=== PATIENT | female | born 1995 | race Hispanic/Latino ===

== ENCOUNTER 2021-03-31 22:00 | Emergency (ER) | payer MEDICAID ==
[~2021-03-31 22:00] MED LIST: PREN-196 PO
[2021-03-31] MEDS ORDERED: CYCLOBENZAPRINE HCL 10 MG TABLET ONE (23:26)
[2021-03-31] MEDS ORDERED: ACETAMINOPHEN EXTRA STRENGTH 500 MG TABLET ONE (23:26)
== END 2021-03-31 23:55 | disposition home or self-care (01) ==
LOC: EDH 22:00
DX: M54.5 Low back pain (principal); M62.830 Muscle spasm of back

== ENCOUNTER 2021-09-01 18:13 | Observation (INO) | payer MEDICAID ==
[~2021-09-01] VITALS: Ht 157.5 cm; Wt 114.3 kg
[2021-09-01] MEDS ORDERED: PROMETHAZINE HCL 25 MG/ML 1ML AMPULE IM ONE (20:30)
[2021-09-01 20:35] VITALS: BP 126/71
== END 2021-09-01 21:25 | disposition home or self-care (01) ==
LOC: EDH 18:13 → LDH 19:37
PROVIDERS: ADMIT Obstetrics & Gynecology; ATTEND Obstetrics & Gynecology
DX: O21.2 Late vomiting of pregnancy (principal); O62.9 Abnormality of forces of labor, unspecified; Z3A.39 39 weeks gestation of pregnancy
CPT/HCPCS: 96372; 99284; G0378 ×2; J2550